=== PATIENT | male | born 1985 | race Caucasian/White ===

== ENCOUNTER 2022-09-17 05:54 | Day surgery (SDC) | payer BC ==
[2022-09-13 13:53] VITALS: BMI 38.0
[2022-09-17] MEDS ORDERED: Oxymetazoline HCl 0.05% (30 ML BOT) ONE ×2 (06:04→06:50)
[2022-09-17] MEDS ORDERED: fentaNYL PF 100 MCG/2 ML SYRINGE ONE ×3 (06:44→09:38)
[2022-09-17] MEDS ORDERED: Lidocaine 1% (PF) 30 ML VIAL ONE (06:50)
[2022-09-17] MEDS ORDERED: Bacitracin Zinc Ointment 30 gm TUBE ONE (06:50)
[2022-09-17] MEDS ORDERED: EPINEPHrine 1 MG/ML AMP ONE (06:50)
[2022-09-17] MEDS ORDERED: SUGAMMADEX SODIUM 200 MG/2 ML VIAL ONE (06:55)
[2022-09-17] MEDS ORDERED: Dexmedetomidine 200 MCG/2 ML VIAL ONE (06:55)
[2022-09-17] MEDS ORDERED: Famotidine/PF 20 mg/2ml Vial ONE (07:20)
[2022-09-17] MEDS ORDERED: CEFAZOLIN 2 GM VIAL ONE (07:36)
[2022-09-17] MEDS ORDERED: Sodium Chloride 0.9% 100 ML ONE (07:36)
[2022-09-17] MEDS ORDERED: Ondansetron PF 4 MG/2 ML Vial ONE (07:48)
[2022-09-17] MEDS ORDERED: PROPOFOL 200 MG/20 ML VIAL ONE (07:48)
[2022-09-17] MEDS ORDERED: Dexamethasone 20 MG/5 ML VIAL ONE (07:48)
[2022-09-17] MEDS ORDERED: Lidocaine 1% PF 5 ML VIAL ONE (07:48)
[2022-09-17] MEDS ORDERED: ePHEDrine Sulfate 50 MG/10 ML VIAL ONE (07:48)
[2022-09-17] MEDS ORDERED: Rocuronium Bromide 10 MG/ML (10ML VIAL) ONE (07:48)
[2022-09-17] MEDS ORDERED: HYDROcodone/Acetaminophen 5/325 mg Tablet ONE (10:34)
== END 2022-09-17 11:25 | disposition home or self-care (01) ==
LOC: SDC 05:54
PROVIDERS: ATTEND Student in an Organized Health Care Education/Training Program
PROC: 09TL0ZZ Resection of Nasal Turbinate, Open Approach (ICD-10-PCS; principal; 2022-09-17)
PROC: 09BM0ZZ Excision of Nasal Septum, Open Approach (ICD-10-PCS; principal; 2022-09-17)
DX: J34.2 Deviated nasal septum (principal); J34.3 Hypertrophy of nasal turbinates; G47.33 Obstructive sleep apnea (adult) (pediatric); Z87.891 Personal history of nicotine dependence
CPT/HCPCS: J0171; J1100; J2001; J2405; J2704; J3490; S0028